=== PATIENT | male | born 1945 | race Caucasian/White ===

== ENCOUNTER 2020-08-28 12:05 | Day surgery (SDC) | payer OTHER ==
--- NOTE | 2020-08-27 16:25 | NUR ---
RE: ABNORMAL EKG INFORMED DR SHIELDS REGARDING ABNORMAL EKG, NO NEW ORDERS RECEIVED. MAY PROCEED WITH SCHEDULED PROCEDURE.
--- NOTE | 2020-08-27 18:36 | NUR ---
NURSING COMMUNICATION: PT STATES HE DOES NOT WANT TO BE GIVEN MORPHINE FOR PAIN, STATES IN WITH PAST PROCEDURE HIS B/P DROPS SEVERELY.
[2020-08-27 18:50] VITALS: BP 147/63
[2020-08-28] VITALS (10 sets, daily range): BP systolic 127–172; BP diastolic 64–94
[~2020-08-28] VITALS: Ht 170.2 cm; Wt 86.5 kg
[~2020-08-28 12:05] MED LIST: AMLO-257 PO; ATOR40TA71 PO; GABA-529 PO; HUMLIS7525 SQ; HYDR25TA PO; LACTATED RINGERS 1000ML 1,000 ML IV ONE; LOSA100T58 PO; OMEP20TA25 PO
[2020-08-28] MEDS ORDERED: MIDAZOLAM HCL 1 MG/ML 2ML VIAL ONE (13:27)
[2020-08-28] MEDS ORDERED: LIDOCAINE HCL MPF 1% 5ML VIAL ONE (13:48)
[2020-08-28] MEDS ORDERED: SODIUM CHLORIDE 0.9% 10 ML VIAL ONE (13:50)
[2020-08-28] MEDS ORDERED: IOPAMIDOL 10 ML VIAL ONE (13:52)
[2020-08-28] MEDS ORDERED: SODIUM CHLORIDE 0.9% 1000ML 1,000 ML IV ONE (13:53)
== END 2020-08-28 15:30 | disposition home or self-care (01) ==
LOC: DAH 12:05
PROVIDERS: ATTEND Family Medicine Sports Medicine
DX: M51.16 Intervertebral disc disorders with radiculopathy, lumbar region (principal); Z20.828 Contact with and (suspected) exposure to other viral communicable diseases; M51.46 Schmorl's nodes, lumbar region; G89.29 Other chronic pain; M47.816 Spondylosis without myelopathy or radiculopathy, lumbar region; E11.9 Type 2 diabetes mellitus without complications; I10 Essential (primary) hypertension; Z90.49 Acquired absence of other specified parts of digestive tract; Z79.899 Other long term (current) drug therapy; Z79.4 Long term (current) use of insulin
CPT/HCPCS: 36415; 62323; 72100; 82948; 93005; A4215; A4221; A4222; A4223; A4663; C9803; J1040; J2250; J3490; J7030; J7120; Q9966; U0003

== ENCOUNTER 2020-12-11 12:10 | Day surgery (SDC) | payer OTHER ==
[2020-12-11] VITALS (10 sets, daily range): BP systolic 139–161; BP diastolic 58–79
[~2020-12-11] VITALS: Ht 165.1 cm; Wt 87.7 kg
[~2020-12-11 12:10] MED LIST changes: -GABA-529 PO; +GABA600T10 PO; -LACTATED RINGERS 1000ML 1,000 ML IV ONE
[2020-12-11] MEDS ORDERED: IOPAMIDOL 10 ML VIAL ONE (12:13)
[2020-12-11] MEDS ORDERED: 0.9%NACL 1000ML 1,000 ML IV ONE (12:15)
[2020-12-11] MEDS ORDERED: DEXAMETHASONE SOD PHOSPHATE 4 MG/ML 1ML VIAL ONE ×2 (12:34→13:26)
[2020-12-11] MEDS ORDERED: LIDOCAINE HCL MPF 1% 5ML VIAL ONE (12:34)
[2020-12-11] MEDS ORDERED: MIDAZOLAM HCL 1 MG/ML 2ML VIAL ONE (12:58)
== END 2020-12-11 14:50 | disposition home or self-care (01) ==
LOC: DAH 12:10
PROVIDERS: ATTEND Family Medicine Sports Medicine
DX: M51.16 Intervertebral disc disorders with radiculopathy, lumbar region (principal); G89.29 Other chronic pain; E11.9 Type 2 diabetes mellitus without complications; I10 Essential (primary) hypertension; M51.46 Schmorl's nodes, lumbar region; Z20.828 Contact with and (suspected) exposure to other viral communicable diseases
CPT/HCPCS: 64483; 82948; A4215; A4216; A4221; A4222; A4223; A4663; C9803; J1100 ×2; J2250; J3490; J7030; Q9966; U0003; 62320; 77003